=== PATIENT | female | born 2005 | race Two or more races ===

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

== ENCOUNTER 2024-09-01 01:59 | Emergency (ER) | payer SELFPAY ==
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
[2024-09-01 02:09] VITALS: BP 144/79; PULSE 83; RESP 17; TEMP 37.1; O2SAT 99; BMI 22.1
[2024-09-01 03:09] LABS: Hematocrit 34.4 % (37.0-47.0); Hemoglobin 11.5 g/dl (12.0-16.0); Imm Gran Abs Auto 0.06 X10*3/uL (0.00-0.03); Imm Gran Pct Auto 0.5 % (0.0-0.4); Lymphocytes Absolute Auto 1.3 X10*3/uL (1.2-4.9); MANUAL DIFF FLAG NO; Mean Corpuscular HGB Conc 33.4 g/dl (31.0-35.0); Mean Corpuscular Hemoglobin 28.2 pg (27.0-33.0); Mean Corpuscular Volume 84.3 fL (80.0-98.0); NRBC Abs Auto 0.000 X10*3/uL (0.0-0.012); NRBC Pct Auto 0.0 /100WBC (0.0-0.2); Platelet Count 251 X10*3/uL (160-400); Red Blood Count 4.08 X10*6/uL (4.20-5.50); White Blood Count 12.4 X10*3/uL (4.8-10.8)
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
[2024-09-01 03:32] LABS: Alanine Aminotransferase 17 U/L (0-31); Albumin Level 4.6 g/dL (3.5-5.0); Alkaline Phosphatase 55 U/L (39-117); Anion Gap 12 (12-20); Aspartate Amino Transferase 22 U/L (5-31); Blood Urea Nitrogen 12 mg/dL (9-16); Calcium 9.0 mg/dL (8.4-10.2); Carbon Dioxide 23 mmol/L (22-29); Chloride 109 mmol/L (96-108); Creatinine Clr Calc Pharmacy 133.6; Estimated Glomerular Filt Rate > 60; Potassium 3.5 mmol/L (3.3-5.1); Sodium 140 mmol/L (135-145); Total Protein 7.2 g/dL (6.5-8.0)
[2024-09-01] MEDS: iohexoL 350 MG/ML 100 ML INFUS..BTL 85 ML IV (04:48)
[2024-09-01 06:07] VITALS: BP 124/79; PULSE 81; TEMP 36.9; O2SAT 98
[2024-09-01 07:45] VITALS: BP 124/79; PULSE 81; RESP 18; TEMP 36.9; O2SAT 98
== END 2024-09-01 07:46 | disposition home or self-care (01) ==
PROVIDERS: Physician Assistant; Emergency Provider Emergency Medicine
DX: S39.012A Strain of muscle, fascia and tendon of lower back, initial encounter (principal); S96.912A Strain of unspecified muscle and tendon at ankle and foot level, left foot, initial encounter; R10.2 Pelvic and perineal pain; M79.605 Pain in left leg; R51.9 Headache, unspecified; M54.2 Cervicalgia; R07.89 Other chest pain; M25.572 Pain in left ankle and joints of left foot; V43.62XA Car passenger injured in collision with other type car in traffic accident, initial encounter; Y93.9 Activity, unspecified; Y92.410 Unspecified street and highway as the place of occurrence of the external cause; Y99.8 Other external cause status; Z79.899 Other long term (current) drug therapy
CPT/HCPCS: 36415; 70450; 71260; 72125; 73590; 73610; 74177; 80053; 84702; 85025; 99284; Q9967

== ENCOUNTER → 2024-09-01 02:41 | Outpatient (BNV) | payer SELFPAY | PROVIDERS: Emergency Provider Emergency Medicine; Visit Provider Specialist | DX: R10.9 Unspecified abdominal pain (principal); S39.012A Strain of muscle, fascia and tendon of lower back, initial encounter; V49.50XA Passenger injured in collision with unspecified motor vehicles in traffic accident, initial encounter; S90.02XA Contusion of left ankle, initial encounter; S80.12XA Contusion of left lower leg, initial encounter | CPT/HCPCS: 70450; 71260; 72125; 73590; 73610; 74177 ==

== ENCOUNTER 2024-12-07 09:26 | Emergency (ER) | payer SELFPAY ==
[2024-12-07 09:37] VITALS: BP 128/82; PULSE 75; RESP 16; TEMP 36.5; O2SAT 98; BMI 25.9
[2024-12-07 10:13] LABS: COVID-19 Test Negative (Negative); IDNOW Serial# 6674DD1D
[2024-12-07 10:14] LABS: IDNOW Serial# 08D9AD1C; IDNOW Serial# 58CA691E; Influenza B2 Negative (Negative); Strep A Nucleic Acid Negative (Negative)
--- NOTE | 2024-12-07 10:56 | ED.GENADULT ---
HPI - General Adult General Chief complaint: Upper Respiratory Symptoms Stated complaint: strep? Time Seen by Provider: 12/07/24 10:55 Source: patient, RN notes reviewed and old records reviewed Mode of arrival: ambulatory Limitations: no limitations History of Present Illness ED Provider: [facility] narrative: Patient is a 19-year-old female presenting to the emergency department with complaint of sore throat for the past week. Denies any difficulty managing secretions. Denies fever. States girlfriend was recently sick with similar symptoms. Using ibuprofen and DayQuil with little relief. Denies cough or shortness of breath. complaint: sore throat Onset (ago): week(s) Related Data Previous Rx's ?Medication ?Instructions ?Recorded cyclobenzaprine 10 mg tablet 10 mg PO TID PRN muscle spasm #20 09/01/24 tabs ibuprofen 600 mg tablet 600 mg PO Q6H PRN pain #30 tabs 09/01/24 lidocaine 5 % topical patch 1 patch topical DAILY #30 ea 09/01/24 Allergies Allergy/AdvReac Type Severity Reaction Status Date / Time No Known Allergies Allergy Verified 12/07/24 09:39 Review of Systems Review of Systems: As per HPI Yes all other systems are reviewed and are negative Constitutional: Constitutional: Reports as per HPI [facility] Social History Social History Advance Directives: No Advance Directives Information Provided: Yes Physical Exam ED Vital Signs: Vital Signs - 24 hr 12/07/24 09:37 12/07/24 11:06 Temperature 97.7 F 97.7 F Pulse Rate 75 75 Respiratory Rate 16 16 Blood Pressure 128/82 128/82 Pulse Oximetry 98 98 Oxygen Delivery Method Room Air BMI result Body Mass Index 25.9 Vital signs have been reviewed and appear to be correct. Blood pressure normal. Heart rate normal. Respiratory rate normal. Temperature normal. Oxygen saturation normal. Const General: cooperative, healthy appearing and no acute distress Orientation/consciousness: oriented to person, oriented to place, oriented to time and patient oriented x3 Limitations: no limitations HENMT Head: Yes normocephalic and Yes atraumatic Ears: external ears normal, TM's normal bilaterally and EAC's normal General nose exam: Normal external nose present Face and sinus: Yes face symmetric Mouth: Normal oral and palatal mucosa present, oropharynx normal, moist mucous membranes, no audible dysphonia, no drooling and no trismus Throat: Yes uvula midline, Yes abnormal tonsil (erythema without edema or exudate), No peritonsillar mass and No uvular edema Eyes Pupils: Equal, round and reactive pupils present Neck Neck: Yes normal visual inspection, Yes no lymphadenopathy and Yes supple Resp Effort & Inspection: normal respiratory effort and able to speak in complete sentences Auscultation: clear to auscultation bilaterally Cardio Rate: regular rate Rhythm: regular rhythm Heart sounds: S1 normal heart sound present and S2 normal heart sound present GI Palpation (GI): Soft to palpation and nontender Auscultation: normoactive bowel sounds General: Yes no CVA tenderness Back/Spine/Pelvis Back: no CVA tenderness Skin General skin exam: elasticity normal and turgor normal Neuro General: oriented to person, oriented to place, oriented to time, patient oriented x3, moves all extremities, no focal motor deficits and CN's II-XI intact bilaterally Cranial nerves: Yes Equal, round and reactive pupils present Cognition (Neuro): normal cognition Extrem General: Yes full ROM, Yes no pedal edema and Yes no calf tenderness Psych Mental Status: mental status grossly normal Affect: normal affect Thought process: Normal thought process present Medical Decision Making Medical Decision Making [facility] Narrative: Patient is a 19-year-old female presenting to the emergency department with complaint of sore throat for the past week. On exam patient is awake, A+Ox3, VS WNL, afebrile, normal neurological exam without focal deficits, physical exam findings as above. Given reported symptoms and physical exam findings, initial differential includes but is not limited to strep versus viral pharyngitis, flu, COVID. Strep and viral swabs negative. Discussed with patient that symptoms could also be due to a mono infection and offered to obtain blood work to determine if this is the cause of her symptoms. Patient declining at this time. Discussed with patient that symptoms likely due to a viral illness, will resolve on their own over time, can use Tylenol or ibuprofen as needed for discomfort as well as warm salt-water gargles. Return precautions discussed. Patient verbalized understanding of and agreement with plan. Differential Diagnosis Differential Diagnoses: The differential diagnosis associated with the presentation includes as per [facility] Admission/Observation Consideration of admission/observation: Escalation of care including admission/observation considered Patient would have been admitted to the hospital and transferred to appropriate facility had their clinical presentation warranted hospital admission. Lab Data [facility] Lab Attestation statement: I reviewed the patient's lab results. as per [facility] Labs: Lab Results 12/07/24 Range/Units 09:45 COVID-19 (WINNIE) Negative (Negative) COVID-19 Clin Com See Note Influenza Type A (NAYA) Negative (Negative) Influenza Type B (NAYA) Negative (Negative) Influenza A & B Note See Note S. pyogenes GrpA NAYA Negative (Negative) External Record Review External record reviewed: Inpatient record, Office record and Outpatient record Discharge Plan Discharge Clinical Impression: Pharyngitis Patient Disposition: Home, Self-Care Instructions: Pharyngitis (ED) Additional Instructions: You were evaluated in the emergency department today for a sore throat. Your COVID, flu, and strep swabs were all negative. Your symptoms are likely related to a viral infection which will resolve on its own with time and rest. Be sure to drink adequate fluids. You can use Tylenol and ibuprofen per package directions as needed for discomfort. You can also gargle with warm salt water several times daily. Follow-up with your primary care provider this week. Return to the emergency department if you develop difficulty swallowing, worsening pain, shortness of breath, are unable to swallow your saliva, or any other concerning symptoms. Prescriptions: No Action cyclobenzaprine 10 mg tablet 10 mg PO TID PRN (Reason: muscle spasm) Qty: 20 0RF lidocaine 5 % adhesive patch,medicated 1 patch topical DAILY Qty: 30 0RF Rx Instructions: leave on most painful area for up to 12 hrs ibuprofen 600 mg tablet 600 mg PO Q6H PRN (Reason: pain) Qty: 30 0RF Stand Alone Forms: Work/School Release Interventions: ED Discharge Assessment Last Done: 12/07/24 11:06 Discharge Date/Time: 12/07/24 11:06 Print Language: Setswana
[2024-12-07 11:06] VITALS: BP 128/82; PULSE 75; RESP 16; TEMP 36.5; O2SAT 98
== END 2024-12-07 11:06 | disposition home or self-care (01) ==
PROVIDERS: Emergency Provider Emergency Medicine
DX: J02.9 Acute pharyngitis, unspecified (principal); Z11.52 Encounter for screening for COVID-19
CPT/HCPCS: 87502; 87635; 87651; 99282; 99283